=== PATIENT | male | born 1985 | race Caucasian/White ===

== ENCOUNTER 2020-09-14 02:55 | Emergency (ER) | payer SELFPAY ==
[~2020-09-14] VITALS: Ht 167.6 cm; Wt 93.4 kg
[2020-09-14 03:07] VITALS: BP 126/65
[2020-09-14 03:45] VITALS: BP 126/65
== END 2020-09-14 03:45 ==
LOC: MED 02:55
DX: R06.00 Dyspnea, unspecified (principal); R11.0 Nausea
CPT/HCPCS: 71045; 99283